=== PATIENT | female | born 1965 | race Caucasian/White ===

== ENCOUNTER 2016-10-03 18:59 | Emergency (ER) | payer OTHER ==
[~2016-10-03] VITALS: Ht 157.5 cm; Wt 83.0 kg
[~2016-10-03 18:59] MED LIST: FLEXERIL10 MG PO
--- NOTE | 2016-10-03 21:15 | ED GENERAL ADULT ---
History of Present Illness General Chief Complaint: Plantar Puncture Wound Stated Complaint: PUNCTURE WOUND R FOOT Source: patient Exam Limitations: no limitations Vital Signs & Intake/Output Vital Signs & Intake/Output Vital Signs Date Time Temp Pulse Resp B/P B/P Pulse O2 O2 Flow FiO2 Mean Ox Delivery Rate 10/04 2119 156/88 10/03 2106 99.2 85 18 95 Room Air 10/03 1914 97.7 86 18 160/85 98 Room Air Allergies Coded Allergies: nitrofurantoin (From MACROBID) (HIVES 10/03/16) Reconcile Medications No Known Home Medications Triage Note: 51 YO FEMALE TO TRIAGE FOR PUNCTURE WOUND TO TOP ON R FOOT. STATES A PAINTING EDGER FELL AND HIT THE TOP OF HER FOOT, PT WAS WEARING FLIP FLOPS. FOOT WRAPPED WORK STUDY STUDENT. BLEEDING CONTROLLED AT THIS TIME. PT UNSURE OF LAST TETANUS SHOT. Triage Nurses Notes Reviewed? yes HPI: 51-year-old otherwise healthy female presenting with lac to right foot that occurred around 5 PM today. Patient was getting tools out of the garage and dropped a painting edger onto the top of her foot. Eyes numbness or paresthesias. Last tetanus is unknown. (JUSTIN HICKEY,BRITTNI) Past History Travel History Traveled to [place] past 21 day No Medical History Any Pertinent Medical History? none Neurological: NONE EENT: NONE Cardiovascular: NONE Respiratory: NONE Gastrointestinal: NONE Hepatic: NONE Renal: NONE Musculoskeletal: NONE Psychiatric: NONE Endocrine: NONE Blood Disorders: NONE Cancer(s): NONE ROLL OUT MANAGER/Reproductive: NONE Tetanus Vaccine: 10/03/16 Surgical History Surgical History: none Psychosocial History What is your primary language Citizen Of [place] Tobacco Use: Never used Family History Hx Contributory? No (BRITTNI ANDERSON PA-C) Review of Systems Review of Systems Constitutional: Reports: no symptoms. Respiratory: Reports: no symptoms. Cardiovascular: Reports: no symptoms. GI: Reports: no symptoms. Genitourinary: Reports: no symptoms. Musculoskeletal: Reports: no symptoms. Skin: Reports: see HPI. Neurological/Psychological: Reports: no symptoms. (JUSTIN HICKEY,BRITTNI) Physical Exam Physical Exam General Appearance: well developed/nourished, no apparent distress, awake, comfortable Head: atraumatic Respiratory: normal breath sounds, lungs clear Cardiovascular: regular rate/rhythm, normal peripheral pulses Neurologic/Psych: awake, alert, oriented x 3 Skin: there is 1-2 cm laceration noted to the dorsal aspect of the foot over the distal fifth metatarsal, tendons are intact, normal sensation, motor strength 5 out of 5, distal pulses palpable, cap refill less than 2 seconds. Of note triage note mentioned patient presents with puncture wound. There are no puncture wounds noted on exam, only a single laceration. Core Measures ACS in differential dx? No CVA/TIA Diagnosis: No Severe Sepsis Present: No Septic Shock Present: No (BRITTNI ANDERSON PA-C) Progress Differential Diagnoses I considered the following diagnoses in my evaluation of the patient: [ Laceration versus tendon injury versus fracture] Plan of Care: There are no signs of tendon injury or bone involvement on exam. Upon removal of patient's home bandage the wound was noted to still have active bleeding. Please 2 sutures of 5-0 absorbable sutures and good hemostasis. Dated. Initial ED EKG: none (BRITTNI ANDERSON PA-C) Departure Departure Disposition: HOME OR SELF CARE Condition: Stable Clinical Impression Primary Impression: Foot laceration Referrals: PATIENT HAS NO PRIMARY CARE DR (PCP/Family) Additional Instructions: Use Tylenol or ibuprofen as needed for pain. Keep the wound clean and dry. The sutures should dissolve after about 7 days. If sutures are still present after 7 days he may try to gently rubbed the area with a wet washcloth. If sutures are still present after 10 days usually have been removed by her primary care provider. Return to the ED for any new or worsening symptoms. Departure Forms: Customer Survey General Discharge Information Prescriptions: Current Visit Scripts No Known Home Medications (BRITTNI ANDERSON PA-C) PA/LIBRARY HELPER Co-Sign Statement Statement: ED Attending supervision documentation- [] I saw and evaluated the patient. I have also reviewed all the pertinent lab results and diagnostic results. I agree with the findings and the plan of care as documented in the PA's/LIBRARY HELPER's documentation. [x] I have reviewed the ED Record and agree with the PA's/LIBRARY HELPER's documentation. [] Additions or exceptions (if any) to the PAs/LIBRARY HELPER's note and plan are summarized below: [] (MARICHUY DRISCOLL,JACOB Sims) Procedures Laceration/Wound Repair Laceration/Wound Repair: Wound Location: lower extremity (left foot) Irrigated w/ Saline (ccs): 30 Betadine Prep? Yes Anesthesia: 1% lidocaine Volume Anesthetic (ccs): 1 Wound Repaired With: sutures Suture Size/Type: 5:0 Number of Sutures: 2 Layer Closure? No Date of Last Tetanus: 10/03/16 Tetanus Status: not up to date (JUSTIN HICKEY,BRITTNI) Critical Care Note Critical Care Note Critical Care Time: non-applicable (BRITTNI ANDERSON PA-C)
[2016-10-03 21:20] VITALS: BP 156/88
== END 2016-10-03 21:21 ==
LOC: ERH 18:59
DX: S91.311A Laceration without foreign body, right foot, initial encounter (principal); W22.8XXA Striking against or struck by other objects, initial encounter; Y92.015 Private garage of single-family (private) house as the place of occurrence of the external cause; Y93.9 Activity, unspecified
CPT/HCPCS: 90471; 90714